=== PATIENT | male | born 1985 | race Caucasian/White ===

== ENCOUNTER 2016-12-17 09:54 | Emergency (ER) | payer OTHER ==
[~2016-12-17] VITALS: Ht 190.5 cm; Wt 95.5 kg
[2016-12-17] MEDS ORDERED: ADVIL 200MG TA200 MG PO (10:02)
[2016-12-17 11:25] VITALS: BP 150/86
== END 2016-12-17 12:00 | disposition short-term general hospital (02) ==
LOC: ED 09:54
DX: S71.142A Puncture wound with foreign body, left thigh, initial encounter (principal); M25.562 Pain in left knee; W29.4XXA Contact with nail gun, initial encounter; Z23 Encounter for immunization
CPT/HCPCS: 90715; J1885; J2405; J3010; J7120